=== PATIENT | male | born 1940 | race Caucasian/White ===

== ENCOUNTER → 2016-09-26 | Outpatient (CLI) | payer MEDICARE, OTHER | END | disposition home or self-care (01) | LOC: CFH 12:56 | PROVIDERS: ATTEND Nurse Practitioner | DX: I82.412 Acute embolism and thrombosis of left femoral vein (principal); Z86.718 Personal history of other venous thrombosis and embolism ==

== ENCOUNTER → 2016-09-27 | Outpatient (CLI) | payer MEDICARE, OTHER ==
[~2016-09-27] MED LIST: OMNIPAQUE 350 MG/ML, 100ML BOTTLE ONE
== END | disposition home or self-care (01) ==
LOC: RAD 15:00
PROVIDERS: ATTEND Family Medicine
DX: J84.10 Pulmonary fibrosis, unspecified (principal); I82.401 Acute embolism and thrombosis of unspecified deep veins of right lower extremity; J98.11 Atelectasis
CPT/HCPCS: 36415; 71275; 82565; Q9967

== ENCOUNTER → 2017-02-10 | Outpatient (CLI) | payer MEDICARE, OTHER | END | disposition home or self-care (01) | LOC: CFH 13:49 | PROVIDERS: ATTEND Physical Medicine & Rehabilitation | DX: M51.36 Other intervertebral disc degeneration, lumbar region (principal); M51.27 Other intervertebral disc displacement, lumbosacral region; M47.896 Other spondylosis, lumbar region | CPT/HCPCS: 72148 ==

== ENCOUNTER 2017-03-16 13:50 | Inpatient (IN) | payer MEDICARE, OTHER ==
[~2017-03-16] VITALS: Ht 182.9 cm; Wt 91.2 kg
[2017-03-16] MEDS ORDERED: CLOP75TA52 PO (14:18)
[2017-03-16] MEDS ORDERED: OMEP-110 PO (14:19)
[2017-03-16] MEDS ORDERED: SODIUM CHLORIDE FLUSH 10ML SYR IVF ONE (14:30)
[2017-03-16 14:40] LABS: HEMATOCRIT 39.8 % (39.2-51.8); HEMOGLOBIN 13.3 g/dL (13.7-18.0); WHITE BLOOD COUNT 10.1 x10^3/uL (3.4-10)
[2017-03-16 14:47] LABS: BLOOD UREA NITROGEN 19 mg/dL (7-18)
[2017-03-16] MEDS ORDERED: HEPARIN 25,000 UNITS/500ML PMX 500 ML ONE (15:58)
[2017-03-16] MEDS ORDERED: HEPARIN 5,000 UNITS/ML, 1ML ONE (15:58)
[2017-03-16] MEDS ORDERED: CEFTRIAXONE PMX 1GM/50ML 50 ML ONE (15:58)
[2017-03-16] MEDS ORDERED: HEPARIN 25,000 UNITS/500ML PMX 500 ML IV PRN (16:00)
[2017-03-16] MEDS ORDERED: AZITHROMYCIN 500 MG in SODIUM CHLORIDE 0.9% 250 ML IVPB ONE (16:00)
[2017-03-16] MEDS ORDERED: CEFTRIAXONE PMX 1GM/50ML 50 ML IVPB ONE (16:00)
[2017-03-16] MEDS ORDERED: HEPARIN 5,000 UNITS/ML, 1ML IV PRN (16:00)
[2017-03-16] MEDS ORDERED: HEPARIN 5,000 UNITS/ML, 1ML IV ONE (16:00)
[2017-03-16] MEDS ORDERED: SODIUM CHLORIDE FLUSH 10ML SYR IVF PRN (16:30)
[2017-03-16] MEDS ORDERED: GUAIFENESIN/DM 200-20MG, 10ML UDC PO PRN (16:30)
[2017-03-16] MEDS ORDERED: ACETAMINOPHEN 325 MG TABLET PO PRN (16:30)
[2017-03-16] MEDS ORDERED: OMNIPAQUE 350 MG/ML, 100ML BOTTLE ONE (16:51)
[2017-03-16] MEDS: ENOXAPARIN 80 MG/0.8 ML SQ SCH (17:27)
[2017-03-16 17:30] VITALS: BP 132/75
[2017-03-16] MEDS ORDERED: OXYcodone IR 5MG TABLET ONE (18:25)
[2017-03-16] MEDS: OXYcodone IR 5MG TABLET PO PRN (18:28)
[2017-03-16 20:27] VITALS: BP 154/63
[2017-03-16] MEDS: SODIUM CHLORIDE FLUSH 10ML SYR IVF SCH (20:56)
[2017-03-16] MEDS: OMEPRAZOLE 20 MG CAPSULE.DR PO SCH (20:56)
[2017-03-16] MEDS ORDERED: Enoxaparin 1 mg/kg protocol SQ SCH (23:59)
[2017-03-17 02:44] VITALS: BP_SYST 110; BP_SYST 96; BP_DIAS 56; BP_DIAS 68
[2017-03-17] MEDS: OXYcodone IR 5MG TABLET PO PRN ×3 (04:44→21:38)
[2017-03-17] MEDS: ENOXAPARIN 80 MG/0.8 ML SQ SCH ×2 (04:44→16:39)
[2017-03-17] MEDS ORDERED: OMEPRAZOLE 20 MG CAPSULE.DR PO SCH (07:30)
[2017-03-17 07:32] VITALS: BP 115/57
[2017-03-17] MEDS: SODIUM CHLORIDE FLUSH 10ML SYR IVF SCH ×2 (09:41→21:38)
[2017-03-17] MEDS: OMEPRAZOLE 20 MG CAPSULE.DR PO SCH ×2 (09:41→16:39)
[2017-03-17 12:19] VITALS: BP 132/74
[2017-03-17] MEDS ORDERED: CLOPIDOGREL 75 MG TABLET PO SCH (15:00)
[2017-03-17] MEDS ORDERED: methylPREDNISolone SOD SUCC 125 MG/2 ML IVPush ONE (16:30)
[2017-03-17] MEDS ORDERED: KETOROLAC 30 MG/1 ML IVPush ONE (16:30)
[2017-03-17] MEDS ORDERED: CEFTRIAXONE PMX 2GM/50ML 50 ML IV SCH (16:30)
[2017-03-17] MEDS: ACETAMINOPHEN 500 MG TABLET PO SCH (16:39)
[2017-03-17] MEDS ORDERED: GADOBUTROL 7.5 MMOL/7.5 ML PFS ONE (17:29)
[2017-03-17] MEDS: AZITHROMYCIN 500 MG TABLET PO SCH (18:10)
[2017-03-17 19:45] VITALS: BP 127/59
[2017-03-18] MEDS: ACETAMINOPHEN 500 MG TABLET PO SCH ×3 (00:30→16:25)
[2017-03-18 01:30] VITALS: BP 113/59
[2017-03-18] MEDS: OXYcodone IR 5MG TABLET PO PRN ×3 (05:12→18:01)
[2017-03-18] MEDS: ENOXAPARIN 80 MG/0.8 ML SQ SCH ×2 (05:12→16:25)
[2017-03-18 07:52] VITALS: BP 128/74
[2017-03-18] MEDS: OMEPRAZOLE 20 MG CAPSULE.DR PO SCH ×2 (09:01→16:25)
[2017-03-18] MEDS: SODIUM CHLORIDE FLUSH 10ML SYR IVF SCH ×2 (09:02→21:07)
[2017-03-18] MEDS: AZITHROMYCIN 500 MG TABLET PO SCH (09:02)
[2017-03-18 13:47] VITALS: BP 133/71
[2017-03-18] MEDS ORDERED: CEFTRIAXONE 2,000 MG in DEXTROSE 5% 50 ML IV SCH (16:30)
[2017-03-18 19:51] VITALS: BP 138/78
[2017-03-19] MEDS: ACETAMINOPHEN 500 MG TABLET PO SCH ×2 (00:13→07:50)
[2017-03-19] MEDS: OXYcodone IR 5MG TABLET PO PRN (00:14)
[2017-03-19 03:35] VITALS: BP 132/74
[2017-03-19] MEDS: ENOXAPARIN 80 MG/0.8 ML SQ SCH (05:32)
[2017-03-19] MEDS: OMEPRAZOLE 20 MG CAPSULE.DR PO SCH (07:50)
[2017-03-19] MEDS: AZITHROMYCIN 500 MG TABLET PO SCH (07:51)
[2017-03-19] MEDS: SODIUM CHLORIDE FLUSH 10ML SYR IVF SCH (07:51)
[2017-03-19 08:18] VITALS: BP 134/69
[2017-03-19] MEDS ORDERED: CEFD300C37 PO (09:06)
[2017-03-19] MEDS ORDERED: AZIT500T5 PO (09:06)
[2017-03-19] MEDS ORDERED: APIX5TAB PO (09:06)
[2017-03-19] MEDS ORDERED: OMEP-110 PO (09:06)
[2017-03-19] MEDS ORDERED: OXYC5TAB3 PO (09:06)
[2017-03-19] MEDS ORDERED: SENN1TAB7 PO (09:06)
[2017-03-19] MEDS ORDERED: ENOXAPARIN 100 MG/ML SQ SCH (18:00)
== END 2017-03-19 11:05 | disposition home or self-care (01) | DRG 175 ==
LOC: ED 16:13 → EDIP 16:30 → 5SO 17:17 → DCLOUNGE 03-19 10:50
PROVIDERS: ADMIT Internal Medicine; ATTEND Internal Medicine
DX: I26.99 Other pulmonary embolism without acute cor pulmonale (principal); J15.9 Unspecified bacterial pneumonia; J90 Pleural effusion, not elsewhere classified; K26.9 Duodenal ulcer, unspecified as acute or chronic, without hemorrhage or perforation; Z86.718 Personal history of other venous thrombosis and embolism; Z87.11 Personal history of peptic ulcer disease; Z90.49 Acquired absence of other specified parts of digestive tract
CPT/HCPCS: 36415; 71010; 71275; 80048; 82040; 83605; 83880; 84145; 84484; 85025; 85520; 85610; 85730; 87040; 93005; 99285; A9585; J0696; J1650; J1885; Q9967; J2930

== ENCOUNTER 2017-07-18 17:38 | Inpatient (IN) | payer MEDICARE, OTHER ==
[~2017-07-18] VITALS: Ht 182.9 cm; Wt 86.0 kg
[~2017-07-18 17:38] MED LIST changes: +APIX5TAB PO; +AZIT500T5 PO; +CEFD300C37 PO; +CLOP75TA52 PO; +OMEP-110 PO; -OMNIPAQUE 350 MG/ML, 100ML BOTTLE ONE; +OXYC5TAB3 PO; +SENN1TAB7 PO
[2017-07-18] MEDS ORDERED: OMEP-110 PO (18:58)
[2017-07-18] MEDS ORDERED: APIX5TAB PO (18:58)
[2017-07-18] MEDS ORDERED: SODIUM CHLORIDE FLUSH 10ML SYR IVF ONE (19:00)
[2017-07-18 19:03] LABS: BASOPHILS # (AUTO) 0.02 x10^3/uL (0-0.1); BASOPHILS % (AUTO) 0 % (0-1); EOSINOPHILS # (AUTO) 0.05 x10^3/uL (0-0.4); EOSINOPHILS % (AUTO) 1 % (1-7); LYMPHOCYTES # (AUTO) 2.02 x10^3/uL (1-3.4); LYMPHOCYTES % (AUTO) 23 % (22-44); MD NO; MEAN CORPUSCULAR HEMOGLOBIN 28.7 pg (27.5-34.5); MEAN CORPUSCULAR HGB CONC 33.7 g/dL (33.2-36.2); MEAN CORPUSCULAR VOLUME 85.2 fL (81-97); MEAN PLATELET VOLUME 7.3 fL (7.4-10.4); MONOCYTES # (AUTO) 0.66 x10^3/uL (0.2-0.8); MONOCYTES % (AUTO) 8 % (2-9); NEUTROPHILS # (AUTO) 6.06 x10^3/uL (1.8-6.8); NEUTROPHILS % (AUTO) 69 % (42-75); PLATELET COUNT 238 x10^3/uL (130-400); RED BLOOD COUNT 4.58 x10^6/uL (4.38-5.82); RED CELL DISTRIBUTION WIDTH 14.7 % (9.4-14.8)
[2017-07-18 19:12] LABS: ALBUMIN 3.4 g/dL (3.4-5.0); ANION GAP 7 mmol/L (5-15); CALCIUM 8.5 mg/dL (8.5-10.1); CHLORIDE 102 mmol/L (98-107); CREATININE 1.11 mg/dL (0.7-1.3)
[2017-07-18] MEDS ORDERED: GADOBUTROL 7.5 MMOL/7.5 ML PFS ONE (19:22)
[2017-07-18 19:29] LABS: TROPONIN I < 0.015 ng/mL (0.000-0.045)
[2017-07-18 20:34] LABS: MICROSCOPIC NOT IND
[2017-07-18 20:41] LABS: CULTURE INDICATED? NO
[2017-07-18 22:08] VITALS: BP 145/75
[2017-07-18] MEDS ORDERED: hydrALAzine 20 MG/ML, 1ML IVPush PRN (22:30)
[2017-07-18] MEDS ORDERED: OMEPRAZOLE 20 MG CAPSULE.DR PO SCH (22:30)
[2017-07-18] MEDS ORDERED: APIXABAN 5 MG TABLET PO SCH (22:30)
[2017-07-18] MEDS ORDERED: morphine SULFATE 10 MG/ML, 1ML IVPush PRN (22:30)
[2017-07-18] MEDS ORDERED: BISACODYL 10 MG SUPP PR PRN (22:30)
[2017-07-18] MEDS ORDERED: ENALAPRILAT 1.25 MG/ML, 2ML IVPush PRN (22:30)
[2017-07-18] MEDS ORDERED: POLYETHYLENE GLYCOL 17 GM PACKET PO PRN (22:30)
[2017-07-18] MEDS ORDERED: ONDANSETRON 2MG/ML, 2ML IVPush PRN (22:30)
[2017-07-18 23:09] LABS: HEMOGLOBIN A1C 5.8 % (4.2-6.3)
[2017-07-18] MEDS: ACETAMINOPHEN 325 MG TABLET PO PRN (23:23)
[2017-07-18] MEDS: GABAPENTIN 100 MG CAPSULE PO SCH (23:23)
[2017-07-18] MEDS: APIXABAN 5 MG TABLET PO SCH (23:23)
[2017-07-18] MEDS: OMEPRAZOLE 20 MG CAPSULE.DR PO SCH (23:23)
[2017-07-18 23:26] LABS: FREE T4 (FREE THYROXINE) 0.91 ng/dL (0.76-1.46); THYROID STIMULATING HORMONE 1.04 mIU/L (0.358-3.740)
[2017-07-19 00:40] VITALS: BP 149/66
[2017-07-19 05:19] LABS: ALBUMIN 3.1 g/dL (3.4-5.0); ANION GAP 9 mmol/L (5-15); CHLORIDE 104 mmol/L (98-107)
[2017-07-19 05:23] LABS: CREATININE 0.98 mg/dL (0.7-1.3)
[2017-07-19 05:24] LABS: ALANINE AMINOTRANSFERASE 12 U/L (12-78); ALKALINE PHOSPHATASE 74 U/L (45-117); BILIRUBIN,TOTAL 0.5 mg/dL (0.2-1.0); CHOL/HDL RATIO 2.9; CHOLESTEROL, TOTAL 138 mg/dL (140-239); HDL CHOL % 34 % (26-37); HDL CHOLESTEROL (DIRECT) 47 mg/dL (40-60); LDL CHOLESTEROL,CALCULATED 74 mg/dL (54-169); LDL/HDL RATIO 1.6 (0.5-3.0); TOTAL PROTEIN 6.3 g/dL (6.4-8.2); TRIGLYCERIDES 87 mg/dL (50-200); VLDL CHOLESTEROL 17 mg/dL (0-25)
[2017-07-19 05:47] LABS: BASOPHILS # (AUTO) 0.02 x10^3/uL (0-0.1); BASOPHILS % (AUTO) 0 % (0-1); EOSINOPHILS # (AUTO) 0.11 x10^3/uL (0-0.4); EOSINOPHILS % (AUTO) 2 % (1-7); LYMPHOCYTES # (AUTO) 1.93 x10^3/uL (1-3.4); LYMPHOCYTES % (AUTO) 29 % (22-44); MD NO; MEAN CORPUSCULAR HEMOGLOBIN 28.1 pg (27.5-34.5); MEAN CORPUSCULAR HGB CONC 32.9 g/dL (33.2-36.2); MEAN CORPUSCULAR VOLUME 85.3 fL (81-97); MEAN PLATELET VOLUME 7.5 fL (7.4-10.4); MONOCYTES # (AUTO) 0.63 x10^3/uL (0.2-0.8); MONOCYTES % (AUTO) 9 % (2-9); NEUTROPHILS # (AUTO) 4.01 x10^3/uL (1.8-6.8); NEUTROPHILS % (AUTO) 60 % (42-75); PLATELET COUNT 219 x10^3/uL (130-400); RED BLOOD COUNT 4.52 x10^6/uL (4.38-5.82); RED CELL DISTRIBUTION WIDTH 14.7 % (9.4-14.8)
[2017-07-19] MEDS: GABAPENTIN 100 MG CAPSULE PO SCH ×4 (06:15→20:57)
[2017-07-19 07:07] VITALS: BP 128/72
[2017-07-19] MEDS: APIXABAN 5 MG TABLET PO SCH (07:37)
[2017-07-19] MEDS: OXYcodone IR 5MG TABLET PO PRN ×3 (07:37→18:32)
[2017-07-19] MEDS: OMEPRAZOLE 20 MG CAPSULE.DR PO SCH (07:37)
[2017-07-19] MEDS: SENNA/DOCUSATE TABLET PO SCH (07:38)
[2017-07-19] MEDS ORDERED: GADOBUTROL 10 MMOL/10 ML VIAL ONE (08:12)
[2017-07-19] MEDS ORDERED: PHARMACY INSTRUCTION MC SCH (10:00)
[2017-07-19 12:35] VITALS: BP 138/85
[2017-07-19] MEDS: MULTIVITAMIN 1 TABLET PO SCH (13:11)
[2017-07-19] MEDS: ERGOCALCIFEROL 50,000 UNIT CAPSULE PO SCH (13:11)
[2017-07-19] MEDS ORDERED: LIDOCAINE 1%, 20ML ONE (13:27)
[2017-07-19] MEDS: DEXAMETHASONE 4 MG/ML, 1ML IVPush SCH ×2 (16:19→22:21)
[2017-07-19] MEDS: HEPARIN 5,000 UNITS/ML, 1ML SQ SCH (18:31)
[2017-07-19 19:25] VITALS: BP 130/72
[2017-07-19] MEDS ORDERED: OMNIPAQUE 350 MG/ML, 100ML BOTTLE ONE (19:30)
[2017-07-19] MEDS: OMEPRAZOLE 20 MG CAPSULE.DR HOMEMEDPO SCH (20:57)
[2017-07-19] MEDS ORDERED: APIXABAN 5 MG TABLET HOMEMEDPO SCH (21:00)
[2017-07-20 01:42] VITALS: BP 132/71
[2017-07-20] MEDS: DEXAMETHASONE 4 MG/ML, 1ML IVPush SCH ×4 (04:31→23:21)
[2017-07-20] MEDS: HEPARIN 5,000 UNITS/ML, 1ML SQ SCH ×3 (04:31→23:21)
[2017-07-20] MEDS: GABAPENTIN 100 MG CAPSULE PO SCH ×4 (06:14→20:10)
[2017-07-20] MEDS: ACETAMINOPHEN 325 MG TABLET PO PRN (06:16)
[2017-07-20 07:26] VITALS: BP 129/66
[2017-07-20] MEDS: SENNA/DOCUSATE TABLET PO SCH (09:07)
[2017-07-20] MEDS: MULTIVITAMIN 1 TABLET PO SCH (09:07)
[2017-07-20] MEDS: OMEPRAZOLE 20 MG CAPSULE.DR HOMEMEDPO SCH ×2 (09:07→20:10)
[2017-07-20] MEDS ORDERED: METOPROLOL TARTRATE 25 MG TABLET ONE (18:32)
[2017-07-20 19:56] VITALS: BP 106/58
[2017-07-21 02:44] VITALS: BP 125/60
[2017-07-21] MEDS: GABAPENTIN 100 MG CAPSULE PO SCH ×4 (05:22→21:00)
[2017-07-21] MEDS: DEXAMETHASONE 4 MG/ML, 1ML IVPush SCH ×4 (05:22→23:54)
[2017-07-21 08:30] VITALS: BP 116/68
[2017-07-21] MEDS: SENNA/DOCUSATE TABLET PO SCH ×2 (08:51→09:06)
[2017-07-21] MEDS: MULTIVITAMIN 1 TABLET PO SCH (09:05)
[2017-07-21] MEDS: HEPARIN 5,000 UNITS/ML, 1ML SQ SCH ×4 (09:05→23:54)
[2017-07-21] MEDS: OMEPRAZOLE 20 MG CAPSULE.DR HOMEMEDPO SCH ×2 (09:05→21:00)
[2017-07-21 14:38] VITALS: BP 110/64
[2017-07-21 19:39] VITALS: BP 114/70
[2017-07-22 02:21] VITALS: BP 132/72
[2017-07-22] MEDS: GABAPENTIN 100 MG CAPSULE PO SCH ×4 (05:03→21:08)
[2017-07-22] MEDS: DEXAMETHASONE 4 MG/ML, 1ML IVPush SCH ×3 (05:04→17:51)
[2017-07-22 08:00] VITALS: BP 125/70
[2017-07-22] MEDS: HEPARIN 5,000 UNITS/ML, 1ML SQ SCH ×3 (08:00→22:33)
[2017-07-22] MEDS: OMEPRAZOLE 20 MG CAPSULE.DR HOMEMEDPO SCH ×2 (09:04→21:08)
[2017-07-22] MEDS: MULTIVITAMIN 1 TABLET PO SCH (09:04)
[2017-07-22 14:00] VITALS: BP 130/70
[2017-07-22 19:45] VITALS: BP 126/68
[2017-07-23] MEDS: DEXAMETHASONE 4 MG/ML, 1ML IVPush SCH ×5 (00:10→23:54)
[2017-07-23 01:19] VITALS: BP 130/65
[2017-07-23] MEDS: GABAPENTIN 100 MG CAPSULE PO SCH ×4 (04:06→22:05)
[2017-07-23 07:20] VITALS: BP 157/77
[2017-07-23] MEDS: HEPARIN 5,000 UNITS/ML, 1ML SQ SCH ×2 (07:35→16:00)
[2017-07-23] MEDS: MULTIVITAMIN 1 TABLET PO SCH (07:57)
[2017-07-23] MEDS: OMEPRAZOLE 20 MG CAPSULE.DR HOMEMEDPO SCH ×2 (07:57→22:04)
[2017-07-23] MEDS: SENNA/DOCUSATE TABLET PO SCH (07:58)
[2017-07-23] MEDS ORDERED: GADOBUTROL 10 MMOL/10 ML PFS ONE (12:36)
[2017-07-23] MEDS ORDERED: BUPIVACAINE/PF 0.5% ONE (15:45)
[2017-07-23] MEDS ORDERED: EPINEPHRINE 1 MG/ML, 1ML ONE (15:45)
[2017-07-23] MEDS ORDERED: THROMBIN 5,000 UNIT VIAL TP ONE ×2 (15:45→16:58)
[2017-07-23] MEDS ORDERED: BACITRACIN 50,000 UNIT ONE (15:46)
[2017-07-23] MEDS ORDERED: ONDANSETRON 2MG/ML, 2ML IVPush PRN (16:00)
[2017-07-23] MEDS ORDERED: OXYcodone 5 MG/5 ML ORAL.SOL UDC PO PRN (16:00)
[2017-07-23] MEDS ORDERED: ACETAMINOPHEN 325 MG TABLET PO PRN (16:00)
[2017-07-23] MEDS ORDERED: FENTANYL PF 250 MCG/5ML ONE (16:08)
[2017-07-23] MEDS ORDERED: ROCURONIUM 10 MG/ML,10ML ONE (16:10)
[2017-07-23] MEDS ORDERED: CEFUROXIME 1.5 GM ONE (16:10)
[2017-07-23] MEDS ORDERED: PROPOFOL 10 MG/ML, 20ML ONE ×2 (16:10)
[2017-07-23] MEDS ORDERED: EPINEPHRINE 1 MG/ML, 1ML INFIL ONE (16:58)
[2017-07-23] MEDS ORDERED: BACITRACIN 50,000 UNIT IRRIG ONE (17:00)
[2017-07-23] MEDS ORDERED: ACETAMINOPHEN 650 MG/20.3 ML UDC ONE (18:13)
[2017-07-23] MEDS ORDERED: FENTANYL PF 100 MCG/2ML ONE (18:13)
[2017-07-23] MEDS ORDERED: OXYcodone 5 MG/5 ML ORAL.SOL UDC ONE (18:14)
[2017-07-23] MEDS: FENTANYL PF 100 MCG/2ML IV PRN ×2 (18:18→18:27)
[2017-07-23] MEDS ORDERED: morphine SULFATE 10 MG/ML, 1ML ONE (18:49)
[2017-07-23] MEDS: morphine SULFATE 10 MG/ML, 1ML IV PRN ×2 (18:53→19:11)
[2017-07-23] MEDS ORDERED: MAGNESIUM HYDROXIDE 8%, 30ML UDC PO PRN (20:00)
[2017-07-23] MEDS ORDERED: DIPHENHYDRAMINE 50 MG/ML, 1ML IV PRN (20:00)
[2017-07-23] MEDS ORDERED: DIPHENHYDRAMINE 25 MG CAPSULE PO PRN (20:00)
[2017-07-23] MEDS ORDERED: CEFUROXIME 1.5 GM in SODIUM CHLORIDE 0.9% 50 ML IVPB SCH (20:00)
[2017-07-23] MEDS ORDERED: HYDROcodone/APAP 5/325 TABLET PO PRN (20:00)
[2017-07-23] MEDS ORDERED: OXYcodone/APAP 5/325MG TABLET PO PRN (20:00)
[2017-07-23] MEDS ORDERED: morphine SULFATE 10 MG/ML, 1ML IV PRN (20:00)
[2017-07-23] MEDS ORDERED: BISACODYL 10 MG SUPP PR PRN (20:00)
[2017-07-23] MEDS: NS + 20MEQ KCL 1,000 ML IV SCH (20:30)
[2017-07-23] MEDS: CEFUROXIME 1.5 GM in SODIUM CHLORIDE 0.9% 50 ML IVPB SCH (23:53)
[2017-07-24 04:37] LABS: BASOPHILS # (AUTO) 0.02 x10^3/uL (0-0.1); BASOPHILS % (AUTO) 0 % (0-1); EOSINOPHILS % (AUTO) 0 % (1-7); LYMPHOCYTES # (AUTO) 1.03 x10^3/uL (1-3.4); LYMPHOCYTES % (AUTO) 9 % (22-44); MD NO; MEAN CORPUSCULAR HEMOGLOBIN 28.2 pg (27.5-34.5); MEAN CORPUSCULAR HGB CONC 32.8 g/dL (33.2-36.2); MEAN CORPUSCULAR VOLUME 85.8 fL (81-97); MEAN PLATELET VOLUME 7.5 fL (7.4-10.4); MONOCYTES # (AUTO) 0.57 x10^3/uL (0.2-0.8); MONOCYTES % (AUTO) 5 % (2-9); NEUTROPHILS # (AUTO) 10.04 x10^3/uL (1.8-6.8); NEUTROPHILS % (AUTO) 86 % (42-75); PLATELET COUNT 256 x10^3/uL (130-400); RED BLOOD COUNT 4.74 x10^6/uL (4.38-5.82); RED CELL DISTRIBUTION WIDTH 14.7 % (9.4-14.8)
[2017-07-24 05:00] VITALS: BP 130/55
[2017-07-24] MEDS: DEXAMETHASONE 4 MG/ML, 1ML IVPush SCH ×3 (05:04→17:24)
[2017-07-24] MEDS: GABAPENTIN 100 MG CAPSULE PO SCH ×4 (05:06→20:14)
[2017-07-24] MEDS: NS + 20MEQ KCL 1,000 ML IV SCH (05:08)
[2017-07-24 05:49] LABS: ANION GAP 10 mmol/L (5-15); CALCIUM 8.5 mg/dL (8.5-10.1); CHLORIDE 104 mmol/L (98-107); CREATININE 0.94 mg/dL (0.7-1.3)
[2017-07-24] MEDS: CEFUROXIME 1.5 GM in SODIUM CHLORIDE 0.9% 50 ML IVPB SCH (08:05)
[2017-07-24] MEDS ORDERED: TAMSULOSIN 0.4 MG CAP.ER.24H PO ONE (08:30)
[2017-07-24] MEDS ORDERED: SENNA/DOCUSATE TABLET PO SCH (09:00)
[2017-07-24] MEDS: MULTIVITAMIN 1 TABLET PO SCH (09:29)
[2017-07-24] MEDS: SENNA/DOCUSATE TABLET PO SCH (09:29)
[2017-07-24] MEDS: OMEPRAZOLE 20 MG CAPSULE.DR HOMEMEDPO SCH ×2 (09:29→20:14)
[2017-07-24 11:32] VITALS: BP 131/69
[2017-07-24 14:04] VITALS: BP 115/69
[2017-07-24 19:26] VITALS: BP 118/67
[2017-07-25] MEDS: DEXAMETHASONE 4 MG/ML, 1ML IVPush SCH ×4 (00:05→17:06)
[2017-07-25 01:22] VITALS: BP 118/65
[2017-07-25 04:43] LABS: BASOPHILS # (AUTO) 0.01 x10^3/uL (0-0.1); BASOPHILS % (AUTO) 0 % (0-1); EOSINOPHILS % (AUTO) 0 % (1-7); LYMPHOCYTES % (AUTO) 10 % (22-44); MD NO; MEAN CORPUSCULAR HEMOGLOBIN 28.4 pg (27.5-34.5); MEAN CORPUSCULAR HGB CONC 33.3 g/dL (33.2-36.2); MEAN CORPUSCULAR VOLUME 85.4 fL (81-97); MEAN PLATELET VOLUME 7.5 fL (7.4-10.4); MONOCYTES # (AUTO) 0.46 x10^3/uL (0.2-0.8); MONOCYTES % (AUTO) 5 % (2-9); NEUTROPHILS # (AUTO) 7.95 x10^3/uL (1.8-6.8); NEUTROPHILS % (AUTO) 85 % (42-75); PLATELET COUNT 234 x10^3/uL (130-400); RED CELL DISTRIBUTION WIDTH 15.2 % (9.4-14.8)
[2017-07-25 04:46] LABS: ALBUMIN 2.7 g/dL (3.4-5.0); ANION GAP 8 mmol/L (5-15); CHLORIDE 104 mmol/L (98-107)
[2017-07-25 04:50] LABS: ALANINE AMINOTRANSFERASE 16 U/L (12-78); ALKALINE PHOSPHATASE 63 U/L (45-117); BILIRUBIN,TOTAL 0.4 mg/dL (0.2-1.0); CREATININE 0.96 mg/dL (0.7-1.3); TOTAL PROTEIN 5.7 g/dL (6.4-8.2)
[2017-07-25] MEDS: GABAPENTIN 100 MG CAPSULE PO SCH ×4 (05:53→21:08)
[2017-07-25 06:43] VITALS: BP 128/73
[2017-07-25] MEDS: MULTIVITAMIN 1 TABLET PO SCH (08:07)
[2017-07-25] MEDS: TAMSULOSIN 0.4 MG CAP.ER.24H PO SCH ×2 (08:07→08:08)
[2017-07-25] MEDS: OMEPRAZOLE 20 MG CAPSULE.DR HOMEMEDPO SCH ×2 (08:07→21:08)
[2017-07-25] MEDS: HEPARIN 5,000 UNITS/ML, 1ML SQ SCH ×2 (14:28→21:08)
[2017-07-25 14:29] VITALS: BP 126/77
[2017-07-25 19:05] VITALS: BP 135/66
[2017-07-25] MEDS: DEXAMETHASONE 4 MG TABLET PO SCH (21:08)
[2017-07-26 01:20] VITALS: BP_SYST 136; BP_SYST 138; BP_DIAS 70; BP_DIAS 84
[2017-07-26] MEDS: GABAPENTIN 100 MG CAPSULE PO SCH ×4 (05:07→20:07)
[2017-07-26] MEDS: HEPARIN 5,000 UNITS/ML, 1ML SQ SCH ×3 (05:07→21:20)
[2017-07-26 06:40] VITALS: BP 132/74
[2017-07-26] MEDS: DEXAMETHASONE 4 MG TABLET PO SCH ×3 (08:54→20:07)
[2017-07-26] MEDS: OMEPRAZOLE 20 MG CAPSULE.DR HOMEMEDPO SCH ×2 (08:54→19:05)
[2017-07-26] MEDS: TAMSULOSIN 0.4 MG CAP.ER.24H PO SCH (08:54)
[2017-07-26] MEDS: MULTIVITAMIN 1 TABLET PO SCH (08:54)
[2017-07-26] MEDS: ERGOCALCIFEROL 50,000 UNIT CAPSULE PO SCH (11:48)
[2017-07-26 15:03] VITALS: BP 117/68
[2017-07-26 18:58] VITALS: BP 131/69
[2017-07-27 00:35] VITALS: BP 121/69
[2017-07-27] MEDS: ACETAMINOPHEN 325 MG TABLET PO PRN (04:23)
[2017-07-27] MEDS: HEPARIN 5,000 UNITS/ML, 1ML SQ SCH ×3 (06:05→21:09)
[2017-07-27] MEDS: GABAPENTIN 100 MG CAPSULE PO SCH ×4 (06:05→21:08)
[2017-07-27 07:07] VITALS: BP 130/66
[2017-07-27] MEDS: TAMSULOSIN 0.4 MG CAP.ER.24H PO SCH (08:59)
[2017-07-27] MEDS: MULTIVITAMIN 1 TABLET PO SCH (08:59)
[2017-07-27] MEDS: OMEPRAZOLE 20 MG CAPSULE.DR PO SCH ×2 (08:59→17:13)
[2017-07-27 12:35] VITALS: BP 132/75
[2017-07-27] MEDS ORDERED: DEXAMETHASONE INTENSOL 1 MG/ML ORAL SOL PO SCH (17:00)
[2017-07-27] MEDS: DEXAMETHASONE 4 MG TABLET PO SCH (18:15)
[2017-07-27 18:41] VITALS: BP 143/70
[2017-07-28 00:58] VITALS: BP 156/82
[2017-07-28 04:46] LABS: BASOPHILS # (AUTO) 0.01 x10^3/uL (0-0.1); BASOPHILS % (AUTO) 0 % (0-1); EOSINOPHILS # (AUTO) 0.02 x10^3/uL (0-0.4); EOSINOPHILS % (AUTO) 0 % (1-7); LYMPHOCYTES # (AUTO) 1.23 x10^3/uL (1-3.4); LYMPHOCYTES % (AUTO) 14 % (22-44); MD NO; MEAN CORPUSCULAR HEMOGLOBIN 28.8 pg (27.5-34.5); MEAN CORPUSCULAR HGB CONC 33.4 g/dL (33.2-36.2); MEAN CORPUSCULAR VOLUME 86.1 fL (81-97); MEAN PLATELET VOLUME 7.2 fL (7.4-10.4); MONOCYTES # (AUTO) 0.72 x10^3/uL (0.2-0.8); MONOCYTES % (AUTO) 8 % (2-9); NEUTROPHILS % (AUTO) 77 % (42-75); PLATELET COUNT 238 x10^3/uL (130-400); RED BLOOD COUNT 4.23 x10^6/uL (4.38-5.82); RED CELL DISTRIBUTION WIDTH 15.2 % (9.4-14.8)
[2017-07-28 05:00] LABS: ANION GAP 7 mmol/L (5-15); CALCIUM 8.1 mg/dL (8.5-10.1); CHLORIDE 105 mmol/L (98-107)
[2017-07-28 05:03] LABS: CREATININE 0.93 mg/dL (0.7-1.3)
[2017-07-28] MEDS: HEPARIN 5,000 UNITS/ML, 1ML SQ SCH ×3 (05:53→20:36)
[2017-07-28] MEDS: GABAPENTIN 100 MG CAPSULE PO SCH ×4 (05:53→20:35)
[2017-07-28 06:37] VITALS: BP 129/69
[2017-07-28] MEDS ORDERED: DEXAMETHASONE 4 MG TABLET PO SCH (07:30)
[2017-07-28] MEDS: DEXAMETHASONE 4 MG TABLET PO SCH ×2 (07:39→16:07)
[2017-07-28] MEDS: MULTIVITAMIN 1 TABLET PO SCH (07:39)
[2017-07-28] MEDS: TAMSULOSIN 0.4 MG CAP.ER.24H PO SCH (07:39)
[2017-07-28] MEDS: OMEPRAZOLE 20 MG CAPSULE.DR PO SCH ×2 (07:39→16:07)
[2017-07-28 12:04] VITALS: BP 134/73
[2017-07-28 19:37] VITALS: BP 134/63
[2017-07-29 00:32] VITALS: BP 111/65
[2017-07-29] MEDS: GABAPENTIN 100 MG CAPSULE PO SCH ×3 (06:40→16:51)
[2017-07-29] MEDS: HEPARIN 5,000 UNITS/ML, 1ML SQ SCH ×2 (06:41→15:00)
[2017-07-29 06:49] VITALS: BP 175/77
[2017-07-29] MEDS: DEXAMETHASONE 4 MG TABLET PO SCH ×2 (07:40→16:51)
[2017-07-29] MEDS: OMEPRAZOLE 20 MG CAPSULE.DR PO SCH ×2 (07:40→16:51)
[2017-07-29] MEDS: MULTIVITAMIN 1 TABLET PO SCH (07:40)
[2017-07-29] MEDS: TAMSULOSIN 0.4 MG CAP.ER.24H PO SCH (07:40)
[2017-07-29] MEDS ORDERED: GABA-826 PO (10:54)
[2017-07-29] MEDS ORDERED: TAMS-11 PO (10:54)
[2017-07-29] MEDS ORDERED: MULT1TAB60 PO (10:54)
[2017-07-29] MEDS ORDERED: DEXA4TAB PO (10:54)
[2017-07-29 12:06] VITALS: BP 144/76
== END 2017-07-29 17:30 | disposition home or self-care (01) | DRG 54 ==
LOC: ED 20:27 → EDIP 20:42 → 3NE 21:35 → CSU 07-23 17:28 → CCU 07-23 19:25 → 3NW 07-24 11:26
PROVIDERS: ADMIT Internal Medicine; ATTEND Family Medicine
PROC: 0HB4XZX Excision of Neck Skin, External Approach, Diagnostic (ICD-10-PCS; principal; 2017-07-19)
PROC: 00B Central Nervous System and Cranial Nerves, Excision (ICD-10-PCS; 2017-07-23)
DX: C71.9 Malignant neoplasm of brain, unspecified (principal); G93.6 Cerebral edema; I27.82 Chronic pulmonary embolism; K26.9 Duodenal ulcer, unspecified as acute or chronic, without hemorrhage or perforation; M47.816 Spondylosis without myelopathy or radiculopathy, lumbar region; D17.9 Benign lipomatous neoplasm, unspecified; D18.00 Hemangioma unspecified site; E55.9 Vitamin D deficiency, unspecified; G93.0 Cerebral cysts; M51.36 Other intervertebral disc degeneration, lumbar region; M50.30 Other cervical disc degeneration, unspecified cervical region; M54.5 Low back pain; W01.0XXA Fall on same level from slipping, tripping and stumbling without subsequent striking against object, initial encounter; K21.9 Gastro-esophageal reflux disease without esophagitis; M46.90 Unspecified inflammatory spondylopathy, site unspecified; Z87.891 Personal history of nicotine dependence; Y93.89 Activity, other specified; Z79.01 Long term (current) use of anticoagulants; Z80.8 Family history of malignant neoplasm of other organs or systems; Z87.11 Personal history of peptic ulcer disease; Y92.89 Other specified places as the place of occurrence of the external cause; Y99.8 Other external cause status; Z90.49 Acquired absence of other specified parts of digestive tract; Z90.89 Acquired absence of other organs
CPT/HCPCS: 36415; 70450; 70544; 70549; 70552; 70553; 71260; 72110; 72156; 72157; 72158; 74177; 76942; 80048; 80053; 80061; 81003; 82040; 82306; 82607; 83036; 83735; 84439; 84443; 84484; 85025; 87081; 88305; 88307; 88331; 88342; 93005; 93306; 99285; A9585; J0171; J0697; J1100; J1644; J2704; J3010; J3480; J3490; Q9967; A4648; G0461; J2270

== ENCOUNTER → 2017-09-10 | Outpatient (CLI) | payer MEDICARE, OTHER ==
[~2017-09-10] MED LIST changes: +DEXA4TAB PO; +GABA-826 PO; +MULT1TAB60 PO; +SULF1TAB23 PO; +TAMS-11 PO
== END | disposition home or self-care (01) ==
LOC: CFH 14:16
PROVIDERS: ATTEND Specialist
DX: M79.604 Pain in right leg (principal); C71.9 Malignant neoplasm of brain, unspecified

== ENCOUNTER 2017-09-14 11:48 | Inpatient (IN) | payer MEDICARE, OTHER ==
[~2017-09-14] VITALS: Ht 182.9 cm; Wt 97.1 kg
[~2017-09-14 11:48] MED LIST changes: -SULF1TAB23 PO
[2017-09-14] MEDS ORDERED: VANCOMYCIN PER PHARMACY IV ONE (12:30)
[2017-09-14] MEDS ORDERED: ACYCLOVIR 700 MG in SODIUM CHLORIDE 0.9% 100 ML IV ONE (12:30)
[2017-09-14] MEDS ORDERED: ACETAMINOPHEN 500 MG TABLET PO ONE (12:30)
[2017-09-14] MEDS ORDERED: PIPERACILLIN/TAZO/PMX 3.375GM 50 ML IVPB ONE (12:30)
[2017-09-14] MEDS ORDERED: SODIUM CHLORIDE FLUSH 10ML SYR IVF ONE (12:30)
[2017-09-14] MEDS ORDERED: ACETAMINOPHEN 500 MG TABLET ONE (12:36)
[2017-09-14] MEDS ORDERED: PIPERACILLIN/TAZO/PMX 3.375GM 50 ML ONE (12:36)
[2017-09-14 12:48] LABS: BASOPHILS # (AUTO) 0.01 x10^3/uL (0-0.1); BASOPHILS % (AUTO) 0 % (0-1); EOSINOPHILS # (AUTO) 0.05 x10^3/uL (0-0.4); EOSINOPHILS % (AUTO) 1 % (1-7); LYMPHOCYTES # (AUTO) 0.37 x10^3/uL (1-3.4); LYMPHOCYTES % (AUTO) 5 % (22-44); MD NO; MEAN CORPUSCULAR HEMOGLOBIN 28.9 pg (27.5-34.5); MEAN CORPUSCULAR VOLUME 87.5 fL (81-97); MEAN PLATELET VOLUME 6.8 fL (7.4-10.4); MONOCYTES # (AUTO) 0.11 x10^3/uL (0.2-0.8); MONOCYTES % (AUTO) 2 % (2-9); NEUTROPHILS # (AUTO) 6.65 x10^3/uL (1.8-6.8); NEUTROPHILS % (AUTO) 93 % (42-75); PLATELET COUNT 174 x10^3/uL (130-400); RED BLOOD COUNT 4.76 x10^6/uL (4.38-5.82); RED CELL DISTRIBUTION WIDTH 16.7 % (9.4-14.8)
[2017-09-14 12:56] LABS: INTERNATIONAL NORMALIZED RATIO 1.11 (0.93-1.1); PROTHROMBIN TIME 11.5 Seconds (9.6-11.5)
[2017-09-14] MEDS ORDERED: VANCOMYCIN 1,800 MG in SODIUM CHLORIDE 0.9% 250 ML IV ONE (13:00)
[2017-09-14 13:01] LABS: ALANINE AMINOTRANSFERASE 41 U/L (12-78); ALBUMIN 2.5 g/dL (3.4-5.0); ANION GAP 8 mmol/L (5-15); CALCIUM 7.5 mg/dL (8.5-10.1); CHLORIDE 104 mmol/L (98-107); CREATININE 1.05 mg/dL (0.7-1.3)
[2017-09-14 13:03] LABS: ALKALINE PHOSPHATASE 62 U/L (45-117); BILIRUBIN,TOTAL 0.4 mg/dL (0.2-1.0); TOTAL PROTEIN 5.4 g/dL (6.4-8.2)
[2017-09-14] MEDS ORDERED: SULF1TAB23 PO (13:14)
[2017-09-14] MEDS ORDERED: SODIUM CHLORIDE 0.9%, 500ML IVBOLUS ONE (14:00)
[2017-09-14 14:03] LABS: MICROSCOPIC AUTO
[2017-09-14 14:04] LABS: CULTURE INDICATED? NO
[2017-09-14] MEDS: SODIUM CHLORIDE 0.9% 1,000 ML IV SCH ×2 (16:30→23:45)
[2017-09-14] MEDS ORDERED: ACETAMINOPHEN 325 MG TABLET PO PRN (16:30)
[2017-09-14] MEDS ORDERED: POLYETHYLENE GLYCOL 17 GM PACKET PO PRN (16:30)
[2017-09-14] MEDS ORDERED: hydrALAzine 20 MG/ML, 1ML IVPush PRN (16:30)
[2017-09-14] MEDS ORDERED: PHARMACOKINETIC CONSULTATION MC ONE (17:00)
[2017-09-14] MEDS ORDERED: VANCOMYCIN PER PHARMACY MC PRN (17:00)
[2017-09-14] MEDS ORDERED: PHARMACOKINETIC MONITORING MC PRN (17:00)
[2017-09-14] MEDS ORDERED: DIPHENHYDRAMINE 25 MG CAPSULE PO PRN (17:00)
[2017-09-14] MEDS: PIPERACILLIN/TAZO/PMX 3.375GM 50 ML IV SCH ×2 (18:23→23:45)
[2017-09-14 19:10] VITALS: BP 114/57
[2017-09-14] MEDS: OMEPRAZOLE 20 MG CAPSULE.DR PO SCH (20:00)
[2017-09-14] MEDS: GABAPENTIN 100 MG CAPSULE PO SCH (20:00)
[2017-09-14] MEDS: DEXAMETHASONE 4 MG TABLET PO SCH (20:00)
[2017-09-14] MEDS: APIXABAN 5 MG TABLET PO SCH (20:01)
[2017-09-14 21:00] VITALS: BP 128/68
[2017-09-15 01:57] VITALS: BP 100/58
[2017-09-15 04:45] LABS: BASOPHILS # (AUTO) 0.01 x10^3/uL (0-0.1); BASOPHILS % (AUTO) 0 % (0-1); EOSINOPHILS # (AUTO) 0.01 x10^3/uL (0-0.4); EOSINOPHILS % (AUTO) 0 % (1-7); LYMPHOCYTES # (AUTO) 0.53 x10^3/uL (1-3.4); LYMPHOCYTES % (AUTO) 13 % (22-44); MD NO; MEAN CORPUSCULAR HEMOGLOBIN 29.3 pg (27.5-34.5); MEAN CORPUSCULAR HGB CONC 33.4 g/dL (33.2-36.2); MEAN CORPUSCULAR VOLUME 87.9 fL (81-97); MONOCYTES # (AUTO) 0.11 x10^3/uL (0.2-0.8); MONOCYTES % (AUTO) 3 % (2-9); NEUTROPHILS # (AUTO) 3.56 x10^3/uL (1.8-6.8); NEUTROPHILS % (AUTO) 84 % (42-75); PLATELET COUNT 152 x10^3/uL (130-400); RED BLOOD COUNT 4.19 x10^6/uL (4.38-5.82)
[2017-09-15 04:48] LABS: ANION GAP 6 mmol/L (5-15); CALCIUM 7.1 mg/dL (8.5-10.1); CHLORIDE 108 mmol/L (98-107); CREATININE 0.99 mg/dL (0.7-1.3)
[2017-09-15] MEDS: PIPERACILLIN/TAZO/PMX 3.375GM 50 ML IV SCH ×3 (06:13→18:20)
[2017-09-15] MEDS: GABAPENTIN 100 MG CAPSULE PO SCH ×4 (06:13→20:09)
[2017-09-15] MEDS: SODIUM CHLORIDE 0.9% 1,000 ML IV SCH ×3 (06:13→18:20)
[2017-09-15 07:03] VITALS: BP 115/64
[2017-09-15] MEDS: OMEPRAZOLE 20 MG CAPSULE.DR PO SCH ×2 (08:17→20:09)
[2017-09-15] MEDS: APIXABAN 5 MG TABLET PO SCH ×2 (08:18→20:09)
[2017-09-15] MEDS: MULTIVITAMIN 1 TABLET PO SCH (08:18)
[2017-09-15] MEDS: DEXAMETHASONE 4 MG TABLET PO SCH ×2 (08:18→20:09)
[2017-09-15] MEDS ORDERED: SODIUM CHLORIDE 0.9% IV SCH (12:00)
[2017-09-15] MEDS ORDERED: ACYCLOVIR IV SCH (12:00)
[2017-09-15] MEDS: ACYCLOVIR 900 MG in SODIUM CHLORIDE 0.9% 250 ML IV SCH ×2 (12:24→20:09)
[2017-09-15 12:39] VITALS: BP 131/79
[2017-09-15 16:07] LABS: ALANINE AMINOTRANSFERASE 46 U/L (12-78); ALBUMIN 2.2 g/dL (3.4-5.0)
[2017-09-15 16:09] LABS: ALKALINE PHOSPHATASE 52 U/L (45-117); BILIRUBIN,TOTAL 0.4 mg/dL (0.2-1.0)
[2017-09-15] MEDS ORDERED: GADOBUTROL 10 MMOL/10 ML PFS ONE (16:13)
[2017-09-15 16:26] LABS: BILIRUBIN,INDIRECT 0.3 mg/dL (0.0-2.0)
[2017-09-15 16:27] LABS: BILIRUBIN, DIRECT < 0.1 mg/dL (0.1-0.2)
[2017-09-15] MEDS ORDERED: OMNIPAQUE 350 MG/ML, 100ML BOTTLE ONE (16:51)
[2017-09-15 19:01] VITALS: BP 120/71
[2017-09-16] MEDS: PIPERACILLIN/TAZO/PMX 3.375GM 50 ML IV SCH ×4 (00:25→18:03)
[2017-09-16] MEDS ORDERED: VANCOMYCIN 1,800 MG in SODIUM CHLORIDE 0.9% 250 ML IV SCH (01:00)
[2017-09-16 01:17] VITALS: BP 104/47
[2017-09-16] MEDS: SODIUM CHLORIDE 0.9% 1,000 ML IV SCH (01:47)
[2017-09-16] MEDS: ACYCLOVIR 900 MG in SODIUM CHLORIDE 0.9% 250 ML IV SCH ×3 (03:38→21:09)
[2017-09-16 03:40] LABS: CULTURE INDICATED? NO; MICROSCOPIC NOT IND
[2017-09-16 04:30] LABS: ALBUMIN 1.9 g/dL (3.4-5.0); ANION GAP 7 mmol/L (5-15); CALCIUM 7.4 mg/dL (8.5-10.1); CHLORIDE 113 mmol/L (98-107)
[2017-09-16 04:35] LABS: BASOPHILS % (AUTO) 0 % (0-1); EOSINOPHILS # (AUTO) 0.18 x10^3/uL (0-0.4); EOSINOPHILS % (AUTO) 3 % (1-7); LYMPHOCYTES # (AUTO) 0.88 x10^3/uL (1-3.4); LYMPHOCYTES % (AUTO) 16 % (22-44); MD NO; MEAN CORPUSCULAR HEMOGLOBIN 29.3 pg (27.5-34.5); MEAN CORPUSCULAR HGB CONC 33.2 g/dL (33.2-36.2); MEAN CORPUSCULAR VOLUME 88.3 fL (81-97); MEAN PLATELET VOLUME 7.5 fL (7.4-10.4); MONOCYTES # (AUTO) 0.25 x10^3/uL (0.2-0.8); MONOCYTES % (AUTO) 5 % (2-9); NEUTROPHILS # (AUTO) 4.26 x10^3/uL (1.8-6.8); NEUTROPHILS % (AUTO) 76 % (42-75); PLATELET COUNT 128 x10^3/uL (130-400); RED BLOOD COUNT 3.92 x10^6/uL (4.38-5.82); RED CELL DISTRIBUTION WIDTH 16.5 % (9.4-14.8)
[2017-09-16] MEDS: GABAPENTIN 100 MG CAPSULE PO SCH ×4 (06:12→21:10)
[2017-09-16 07:34] VITALS: BP 127/72
[2017-09-16] MEDS: OMEPRAZOLE 20 MG CAPSULE.DR PO SCH ×2 (07:47→21:10)
[2017-09-16] MEDS: APIXABAN 5 MG TABLET PO SCH ×2 (07:47→21:10)
[2017-09-16] MEDS: MULTIVITAMIN 1 TABLET PO SCH (07:47)
[2017-09-16] MEDS: DEXAMETHASONE 4 MG TABLET PO SCH ×2 (07:47→21:09)
[2017-09-16 13:40] VITALS: BP 137/73
[2017-09-16] MEDS ORDERED: SODIUM CHLORIDE 0.9% 1,000 ML IV SCH (16:27)
[2017-09-16 19:42] VITALS: BP 122/61
[2017-09-17] MEDS: PIPERACILLIN/TAZO/PMX 3.375GM 50 ML IV SCH ×2 (01:36→08:36)
[2017-09-17 03:23] VITALS: BP 134/56
[2017-09-17] MEDS: ACYCLOVIR 900 MG in SODIUM CHLORIDE 0.9% 250 ML IV SCH (04:08)
[2017-09-17 04:42] LABS: BASOPHILS # (AUTO) 0.02 x10^3/uL (0-0.1); BASOPHILS % (AUTO) 0 % (0-1); EOSINOPHILS # (AUTO) 0.07 x10^3/uL (0-0.4); EOSINOPHILS % (AUTO) 1 % (1-7); LYMPHOCYTES # (AUTO) 0.96 x10^3/uL (1-3.4); LYMPHOCYTES % (AUTO) 17 % (22-44); MD NO; MEAN CORPUSCULAR HEMOGLOBIN 28.7 pg (27.5-34.5); MEAN CORPUSCULAR HGB CONC 32.8 g/dL (33.2-36.2); MEAN CORPUSCULAR VOLUME 87.5 fL (81-97); MEAN PLATELET VOLUME 7.5 fL (7.4-10.4); MONOCYTES # (AUTO) 0.28 x10^3/uL (0.2-0.8); MONOCYTES % (AUTO) 5 % (2-9); NEUTROPHILS # (AUTO) 4.32 x10^3/uL (1.8-6.8); NEUTROPHILS % (AUTO) 77 % (42-75); PLATELET COUNT 136 x10^3/uL (130-400); RED BLOOD COUNT 3.99 x10^6/uL (4.38-5.82); RED CELL DISTRIBUTION WIDTH 16.8 % (9.4-14.8)
[2017-09-17 04:51] LABS: ALANINE AMINOTRANSFERASE 35 U/L (12-78); ALBUMIN 2.1 g/dL (3.4-5.0); ANION GAP 7 mmol/L (5-15); CALCIUM 7.4 mg/dL (8.5-10.1); CHLORIDE 108 mmol/L (98-107)
[2017-09-17 04:54] LABS: ALKALINE PHOSPHATASE 49 U/L (45-117); BILIRUBIN,TOTAL 0.4 mg/dL (0.2-1.0); CREATININE 0.91 mg/dL (0.7-1.3); TOTAL PROTEIN 4.7 g/dL (6.4-8.2)
[2017-09-17] MEDS: GABAPENTIN 100 MG CAPSULE PO SCH ×2 (05:58→11:47)
[2017-09-17] MEDS: APIXABAN 5 MG TABLET PO SCH (08:36)
[2017-09-17] MEDS: MULTIVITAMIN 1 TABLET PO SCH (08:36)
[2017-09-17] MEDS: DEXAMETHASONE 4 MG TABLET PO SCH (08:36)
[2017-09-17] MEDS: OMEPRAZOLE 20 MG CAPSULE.DR PO SCH (08:37)
[2017-09-17 10:08] VITALS: BP 178/75
[2017-09-17 11:50] VITALS: BP 136/71
[2017-09-17] MEDS ORDERED: ACYC-57 PO (11:58)
== END 2017-09-17 14:45 | disposition home or self-care (01) | DRG 871 ==
LOC: ED 14:19 → EDIP 14:33 → 3NW 15:07
PROVIDERS: ADMIT Hospitalist; ATTEND Hospitalist
DX: A41.9 Sepsis, unspecified organism (principal); R53.2 Functional quadriplegia; D89.9 Disorder involving the immune mechanism, unspecified; C71.9 Malignant neoplasm of brain, unspecified; J98.11 Atelectasis; R31.29 Other microscopic hematuria; R21 Rash and other nonspecific skin eruption; R91.1 Solitary pulmonary nodule; J40 Bronchitis, not specified as acute or chronic; L29.9 Pruritus, unspecified; N40.0 Benign prostatic hyperplasia without lower urinary tract symptoms; Z66 Do not resuscitate; Z79.01 Long term (current) use of anticoagulants; Z80.1 Family history of malignant neoplasm of trachea, bronchus and lung; Z85.841 Personal history of malignant neoplasm of brain; Z86.711 Personal history of pulmonary embolism; Z86.718 Personal history of other venous thrombosis and embolism; Z87.11 Personal history of peptic ulcer disease; Z92.21 Personal history of antineoplastic chemotherapy
CPT/HCPCS: 36415; 70450; 70553; 71045; 71260; 76700; 80048; 80053; 80076; 81001; 81003; 82040; 82140; 83605; 83735; 84100; 84443; 85025; 85610; 87040; 93005; 96361; 96365; 96366; 96368; 96375; A9585; J0133; J2543; J3370; Q9967; J7030; J7040; J7050

== ENCOUNTER → 2017-09-22 | Outpatient (CLI) | payer MEDICARE, OTHER ==
[~2017-09-22] MED LIST changes: +ACYC-57 PO; +SULF1TAB23 PO
== END | disposition home or self-care (01) ==
LOC: ROC 07:55
PROVIDERS: ATTEND Radiology Radiation Oncology
DX: Z02.9 Encounter for administrative examinations, unspecified (principal)

== ENCOUNTER → 2017-10-09 | Outpatient (CLI) | payer MEDICARE, OTHER ==
[~2017-10-09] MED LIST changes: +GADOBUTROL 10 MMOL/10 ML VIAL ONE
== END | disposition home or self-care (01) ==
LOC: CFH 13:12
PROVIDERS: ATTEND Radiology Radiation Oncology
DX: G93.0 Cerebral cysts (principal); I67.82 Cerebral ischemia; R90.82 White matter disease, unspecified; C71.3 Malignant neoplasm of parietal lobe
CPT/HCPCS: 70553; A9585

== ENCOUNTER → 2017-10-09 | Outpatient (CLI) | payer MEDICARE, OTHER ==
[~2017-10-09] MED LIST changes: -GADOBUTROL 10 MMOL/10 ML VIAL ONE
== END | disposition home or self-care (01) ==
LOC: ROC 14:32
PROVIDERS: ATTEND Radiology Radiation Oncology
DX: C71.3 Malignant neoplasm of parietal lobe (principal); Z79.01 Long term (current) use of anticoagulants; Z92.3 Personal history of irradiation
CPT/HCPCS: G0463